=== PATIENT | female | born 1975 | race Caucasian/White ===

== ENCOUNTER 2017-05-31 13:55 | Emergency (ER) | payer MEDICAID ==
[2017-05-31] MEDS ORDERED: NS 1,000 ML IV ONE (14:15)
--- NOTE | 2017-05-31 14:27 | EDPHY ---
H & P Smoking Status: Former smoker Time Seen by Provider: 05/31/17 14:15 HPI/ROS: HPI Lower abdominal pain. 41-year-old female by private vehicle with her . This patient reports that for the last week she has had urinary tract infection symptoms. This includes burning with urination, increased frequency with urination and a sense of urgency. She reports that last night she developed periumbilical pain which then migrated to the right lower quadrant. She presents now complaining of right lower quadrant pain which she describes as sharp and aching with some radiation to the right flank area. No fever. She has had nausea but no vomiting. She has had recent loose stools but no diarrhea. No bloody or melenic stool. No prior abdominal surgical history. Last meal was just prior to arrival. This included some crackers. Last menstrual period was 2 weeks ago. No vaginal bleeding or vaginal discharge. ROS: Constitutional: No fever, no chills. No weakness. Eyes: No discharge. No changes in vision. ENT: No sore throat. No nasal congestion or rhinorrhea. Respiratory: No cough. No shortness of breath. Cardiac: No chest pain, no palpitations. Gastrointestinal: As above, no vomiting, no diarrhea. Genitourinary: No hematuria. As above. Musculoskeletal: No back pain. No neck pain. No myalgias or arthralgias. Skin: No rashes. Neurological: No headache. No focal weakness or altered sensation. Past medical history: Diverticulitis per Social history: Nonsmoker. Hip her . Physical Exam: General Appearance: Alert, pleasant 41-year-old female, no distress. This patient is responding to questions appropriately and in full sentences. This patient appears well-hydrated and well-nourished. Eyes: Pupils equal and round no pallor or injection. No lid edema, erythema or injection. Respiratory: There are no retractions, lungs are clear to auscultation with good air movement bilaterally. Cardiovascular: Regular rate and rhythm. No murmur. Gastrointestinal: Abdomen is soft with vague mild to moderate right lower quadrant tenderness on palpation, no masses, bowel sounds normal. No focal tenderness at McBurney's point. No Duarte sign. Neurological: Motor sensory function is grossly intact. Cranial nerves are normal. Gait is normal. Skin: Warm and dry, no rashes. Musculoskeletal: No CVA tenderness on palpation bilaterally. Extremities are symmetrical. All joints range without pain or impingement. Psychiatric: No agitation. No depression. Database: EKG: Imaging: CT scan of abdomen and pelvis with IV contrast: Procedures: Emergency department course: Vital signs reviewed and normal. IV was placed. She was started on IV normal saline with 1 L to be given over the next hour. Urine obtained. I discussed CT imaging to evaluate for possible appendicitis. She consents. She declined pain medication at this time 2:30 p.m., urinalysis consistent with urinary tract infection. She was given 1 g of IV Rocephin. 3:00 p.m., awaiting results of CT scan of abdomen and pelvis. If CT imaging unremarkable, plan will be to send the patient home on antibiotics, 1st or 2nd generation cephalosporin for treatment of urinary tract infection. Care turned over to Dr. Lui Greene at this time. Differential Diagnosis: The differential diagnosis on this patient includes but is not limited to urinary tract infection, early pyelonephritis, ruptured ovarian cyst, appendicitis. Ovarian torsion, ectopic unlikely. This represents a partial list of diagnoses considered. These considerations are based on history , physical exam, past history, reassessment and diagnostic testing. (Ina Betancourt) Constitutional: Initial Vital Signs Temperature (C) 36.4 C 05/31/17 14:08 Heart Rate 80 05/31/17 14:08 Respiratory Rate 16 05/31/17 14:08 Blood Pressure 132/92 H 05/31/17 14:08 O2 Sat (%) 97 05/31/17 14:08 O2 Delivery Mode Room Air Allergies/Adverse Reactions: No Known Allergies Allergy (Verified 05/31/17 14:06) Home Medications: Medication Instructions Recorded Cefdinir [Omnicef (*)] 300 mg PO BID #14 cap 05/31/17 Docusate Sodium [Colace 100 MG (*)] 100 mg PO BID PRN #20 cap 05/31/17 Ondansetron Odt [Zofran Odt] 4 - 8 mg PO Q4PRN PRN #4 tab 05/31/17 Medical Decision Making - Diagnostics Imaging Results: Imaging Impressions Abdomen CT 05/31/17 14:22 Impression: 1. Suspect mild right urinary tract infection, without evidence of pyelonephritis or urinary tract obstruction. 2. No CT evidence of appendicitis, abscess, or bowel obstruction. 3. Prominent pelvic veins consistent with pelvic congestion, with minimal posterior cul-de-sac fluid. No definite adnexal masses. Findings and recommendations discussed with Emergency Department physician, Dr. Lui Greene at 1528 hours, on May 31, 2017. Final report concurs with initial preliminary interpretation. E:amm ED Course/Re-evaluation: At 3:30 p.m. The patient feels comfortable on recheck with discomfort down to 2/ 10. I discussed her CT results with her-no appendicitis, moderate constipation mild right ureteral inflammation with no other significant abnormalities per radiologist's Dr. Willis. The patient's nausea also improved. Next this the patient's 1st urinary tract infections I counseled regarding UTI and also regarding constipation. Will provide a script for Bereicef Zofran if she has any recurrence of nausea and Colace for constipation. She understands the need to return to the emergency department should she develop any worsening symptoms despite the treatment plan. (Lui Greene) - Data Points Laboratory Results: Laboratory Results 05/31/17 14:30 05/31/17 14:30 05/31/17 05/31/17 05/31/17 14:30 14:30 14:30 WBC 13.36 10^3/uL H 10^3/uL (3.80-9.50) RBC 4.63 10^6/uL 10^6/uL (4.18-5.33) Hgb 13.9 g/dL g/dL (12.6-16.3) Hct 39.3 % % (38.0-47.0) MCV 84.9 fL fL (81.5-99.8) MCH 30.0 pg pg (27.9-34.1) MCHC 35.4 g/dL g/dL (32.4-36.7) RDW 11.7 % % (11.5-15.2) Plt Count 300 10^3/uL 10^3/uL (150-400) MPV 8.3 fL L fL (8.7-11.7) Neut % (Auto) 77.3 % H % (39.3-74.2) Lymph % (Auto) 17.3 % % (15.0-45.0) [place] % (Auto) 3.7 % L % (4.5-13.0) Eos % (Auto) 1.0 % % (0.6-7.6) Baso % (Auto) 0.4 % % (0.3-1.7) Nucleat RBC Rel Count 0.0 % % (0.0-0.2) Absolute Neuts (auto) 10.32 10^3/uL H 10^3/uL (1.70-6.50) Absolute Lymphs (auto) 2.31 10^3/uL 10^3/uL (1.00-3.00) Absolute Monos (auto) 0.50 10^3/uL 10^3/uL (0.30-0.80) Absolute Eos (auto) 0.14 10^3/uL 10^3/uL (0.03-0.40) Absolute Basos (auto) 0.05 10^3/uL 10^3/uL (0.02-0.10) Absolute Nucleated RBC 0.00 10^3/uL 10^3/uL (0-0.01) Immature Gran % 0.3 % % (0.0-1.1) Immature Gran # 0.04 10^3/uL 10^3/uL (0.00-0.10) Sodium 137 mEq/L mEq/L (135-145) Potassium 3.6 mEq/L mEq/L (3.5-5.2) Chloride 100 mEq/L mEq/L (97-110) Carbon Dioxide 24 mEq/l mEq/l (22-31) Anion Gap 13 mEq/L mEq/L (8-16) BUN 9 mg/dL mg/dL (7-23) Creatinine 0.6 mg/dL mg/dL (0.6-1.0) Estimated GFR > 60 Glucose 104 mg/dL H mg/dL (70-100) Calcium 9.6 mg/dL mg/dL (8.5-10.4) Beta HCG, Qual NEGATIVE Urine Color Urine Appearance Urine pH Ur Specific [place] Urine Protein Urine Ketones Urine Blood Urine Nitrate Urine Bilirubin Urine Urobilinogen Ur Leukocyte Esterase Urine RBC Urine WBC Ur Epithelial Cells Urine Mucus Urine Glucose 05/31/17 14:15 WBC RBC Hgb Hct MCV MCH MCHC RDW Plt Count MPV Neut % (Auto) Lymph % (Auto) [place] % (Auto) Eos % (Auto) Baso % (Auto) Nucleat RBC Rel Count Absolute Neuts (auto) Absolute Lymphs (auto) Absolute Monos (auto) Absolute Eos (auto) Absolute Basos (auto) Absolute Nucleated RBC Immature Gran % Immature Gran # Sodium Potassium Chloride Carbon Dioxide Anion Gap BUN Creatinine Estimated GFR Glucose Calcium Beta HCG, Qual Urine Color YELLOW Urine Appearance CLOUDY Urine pH 7.0 (5.0-7.5) Ur Specific [place] 1.015 (1.002-1.030) Urine Protein 1+ H (NEGATIVE) Urine Ketones NEGATIVE (NEGATIVE) Urine Blood 3+ H (NEGATIVE) Urine Nitrate POSITIVE H (NEGATIVE) Urine Bilirubin NEGATIVE (NEGATIVE) Urine Urobilinogen 0.2 EU EU (0.2-1.0) Ur Leukocyte Esterase 3+ H (NEGATIVE) Urine RBC >182 /hpf H /hpf (0-3) Urine WBC 50-182 /hpf H /hpf (0-3) Ur Epithelial Cells TRACE /lpf /lpf (NONE-1+) Urine Mucus 1+ /lpf /lpf (NONE-1+) Urine Glucose NEGATIVE (NEGATIVE) Medications Given: Discontinued Medications Sodium Chloride (Ns) 1,000 mls @ 0 mls/hr IV EDNOW ONE; Wide Open PRN Reason: Protocol Stop: 05/31/17 14:16 Last Admin: 05/31/17 14:33 Dose: 1,000 mls Ceftriaxone Sodium/Dextrose (Rocephin 1 Gm (Premix)) 50 mls @ 100 mls/hr IV EDNOW ONE PRN Reason: Protocol Stop: 05/31/17 15:02 Last Admin: 05/31/17 14:54 Dose: 50 mls Departure - Departure Disposition: Home, Routine, Self-Care Clinical Impression: Nausea Urinary tract infection Qualifiers: Urinary tract infection type: acute pyelonephritis Qualified Code(s): N10 - Acute pyelonephritis Constipation Qualifiers: Constipation type: unspecified constipation type Qualified Code(s): K59.00 - Constipation, unspecified Condition: Good Instructions: Constipation (ED), Urinary Tract Infection in Women (ED) Additional Instructions: Diagnosis: Pyelonephritis 2. Constipation 3. Nausea Plan: Drink plenty fluids Omnicef antibiotic-1st dose tomorrow Ibuprofen Tylenol for discomfort if needed Zofran for nausea if needed Colace for constipation. Plenty fruit and fiber. Also consider adding an tbsp of normal of oil to food each day to help with constipation. Follow up with primary care physician for any ongoing symptoms despite the treatment plan. Return for any significant worsening despite the treatment plan. Referrals: NONE *PRIMARY CARE P,. [Primary Care Provider] - As per Instructions Link Huff MD [Medical Doctor] - As per Instructions Prescriptions: Cefdinir [Omnicef (*)] 300 mg PO BID #20 cap Docusate Sodium [Colace 100 MG (*)] 100 mg PO BID PRN #20 cap PRN Reason: Constipation Ondansetron Odt [Zofran Odt] 4 - 8 mg PO Q4PRN PRN #4 tab PRN Reason: Vomiting
[2017-05-31 14:35] LABS: PLATELET COUNT 300 10^3/uL (150-400)
[2017-05-31] MEDS ORDERED: IOPAMIDOL (ISOVUE-300) 100 ML BTL ONE (14:47)
[2017-05-31 15:50] VITALS: BP 129/72
== END 2017-05-31 15:50 | disposition home or self-care (01) ==
LOC: CED 13:55
DX: N10 Acute pyelonephritis (principal); K59.00 Constipation, unspecified; R11.0 Nausea; E86.9 Volume depletion, unspecified; Z87.891 Personal history of nicotine dependence
CPT/HCPCS: 74177-PO; 80048-PO; 81003-PO; 81015-PO; 84703-PO; 85025-PO; 96365; J0696; Q9967

== ENCOUNTER → 2018-07-19 | Outpatient (CLI) | payer MEDICAID | LOC: EMCIMAGING 07:36 ==